=== PATIENT | male | born 1955 | race Caucasian/White ===

== ENCOUNTER 2019-07-18 14:30 | Emergency (ER) | payer MEDICARE, OTHER ==
[2019-07-18] MEDS ORDERED: Aspirin 81 MG Tab.Chew PO ONE (14:50)
--- NOTE | 2019-07-18 15:10 | EDM.PDOC ---
ED HPI GENERAL MEDICAL PROBLEM - General Chief Complaint: Chest Pain Stated Complaint: chest pain Time Seen by Provider: 07/18/19 14:50 Source of Information: Reports: Patient History Limitations: Reports: No Limitations - History of Present Illness INITIAL COMMENTS - FREE TEXT/NARRATIVE: State that he ate at noon and then laid down for a nap about 1230 and when he woke up about 1445 with some tingling in his left arm to about the elbow. [place] slightly SOB. No nausea or vomiting. Denied any chest pain "but maybe a little pressure" Denies having any pain at this time. "I might have made myself nervous with the pain in my arm". No edema noted. Onset: Today Onset Time: 13:45 Duration: Improving Location: Reports: Chest Associated Symptoms: Denies: Cough, cough w sputum, Fever/Chills, Headaches, Nausea/Vomiting Right Chest Pain Score (Numeric/FACES): 2 - Related Data Allergies Allergy/AdvReac Type Severity Reaction Status Date / Time bee venom protein (honey bee) Allergy Swelling Verified 07/18/19 15:04 Home Meds: Home Meds Fish Oil/DHA/EPA [Fish Oil 1,200 MG] 1 each PO DAILY 07/18/19 [History] Lisinopril/Hydrochlorothiazide [Lisinopril-Hctz 10-12.5 mg Tab] 1 tab PO DAILY 07/18/19 [History] Multivitamin [Multi-Vitamin Daily] 1 each PO DAILY 07/18/19 [History] atorvaSTATin Calcium [Atorvastatin Calcium] 10 mg PO DAILY 07/18/19 [History] Past Medical History Cardiovascular History: Reports: High Cholesterol, Hypertension Social & Family History - Family History Cardiac: Reports: CAD - Tobacco Use Smoking Status *Q: Current Every Day Smoker - Living Situation & Occupation Living situation: Reports: , with Spouse ED ROS GENERAL - Review of Systems Review Of Systems: See Below Constitutional: Denies: Fever, Chills HEENT: Reports: No Symptoms Respiratory: Denies: Shortness of Breath, Cough Cardiovascular: Reports: Chest Pain, Other (pain down the left arm) GI/Abdominal: Reports: No Symptoms : Reports: No Symptoms Musculoskeletal: Reports: No Symptoms Skin: Reports: No Symptoms Neurological: Reports: Tingling ED EXAM, GENERAL - Physical Exam Exam: See Below Exam Limited By: No Limitations General Appearance: Alert, WD/WN, No Apparent Distress Ears: Normal External Exam, Normal Canal, Normal TMs Nose: Normal Inspection Throat/Mouth: Normal Inspection, Normal Oropharynx, Normal Voice, No Airway Compromise Head: Atraumatic, Normocephalic Neck: Normal Inspection, Supple, Non-Tender, Full Range of Motion Respiratory/Chest: No Respiratory Distress, Lungs Clear, Normal Breath Sounds Cardiovascular: Normal Peripheral Pulses, Regular Rate, Rhythm, No Edema GI/Abdominal: Normal Bowel Sounds, Soft, Non-Tender Extremities: Normal Inspection, No Pedal Edema Neurological: Alert, Oriented Skin Exam: Warm, Dry, Intact Course - Vital Signs Last Recorded V/S: Last Vital Signs Temp 97.7 F 07/18/19 14:47 Pulse 82 07/18/19 14:47 Resp 20 07/18/19 14:47 BP 192/98 H 07/18/19 14:47 Pulse Ox 97 07/18/19 14:47 - Orders/Labs/Meds Orders: Active Orders 24 hr Category Date Time Status Chest 2V [CR] Routine Exams 07/18/19 Ordered CBC WITH AUTO DIFF [HEME] Stat Lab 07/18/19 14:55 Received COMPREHENSIVE METABOLIC PN,CMP [CHEM] Stat Lab 07/18/19 14:55 Received CREATINE KINASE,CK [CHEM] Stat Lab 07/18/19 14:55 Received INR,PT,PROTHROMBIN TIME [COAG] Stat Lab 07/18/19 14:55 Received LACTATE DEHYDROGENASE,LDH [CHEM] Stat Lab 07/18/19 14:55 Received LIPASE [CHEM] Stat Lab 07/18/19 14:55 Received PTT,PARTIAL THROMBOPLSTIN TIME [COAG] Stat Lab 07/18/19 14:55 Received TROPONIN I [CHEM] Stat Lab 07/18/19 14:55 Received - Re-Assessments/Exams Free Text/Narrative Re-Assessment/Exam: 07/18/19 15:33 Discussed normal lab results with the pt, normal EKG at this time. Pt voices understanding of above. Departure - Departure Time of Disposition: 15:34 Disposition: Home, Self-Care 01 Condition: Good Clinical Impression: Atypical chest pain, Hypertension Instructions: Nonspecific Chest Pain, Adult, [id number] Additional Instructions: Follow up with Matthieu Garza in the clinic as scheduled. If any chest pain returns or tingling down the arm, then needs to return to the ER Sepsis Event Note - Evaluation Sepsis Screening Result: No Definite Risk - Focused Exam Vital Signs: Vital Signs Temp Pulse Resp BP Pulse Ox 07/18/19 14:47 97.7 F 82 20 192/98 H 97 Date Exam was Performed: 07/18/19 Time Exam was Performed: 15:04 - Problem List & Annotations (1) Atypical chest pain SNOMED Code(s): 163488961 Code(s): R07.89 - OTHER CHEST PAIN Status: Acute Priority: High - Problem List Review Problem List Initiated/Reviewed/Updated: Yes
[2019-07-18 15:21] LABS: CHLORIDE,CL 98 mEq/L (98-106); SODIUM,NA 136 mEq/L (136-145)
[2019-07-18 15:26] LABS: PTT,PARTIAL THROMBOPLSTIN TIME 23.8 SEC (23.2-32.3)
== END 2019-07-18 15:55 | disposition home or self-care (01) ==
LOC: CC.ED 14:30
DX: R07.89 Other chest pain (principal); I10 Essential (primary) hypertension; E78.00 Pure hypercholesterolemia, unspecified; F17.200 Nicotine dependence, unspecified, uncomplicated; Z79.899 Other long term (current) drug therapy; Z91.030 Bee allergy status
CPT/HCPCS: 36415; 71046; 80053; 82550; 83615; 83690; 84484; 85025; 85610; 85730; 93005; 93010; 99284; 99285-25; A9270-GY

== ENCOUNTER 2019-11-08 06:54 | Emergency (ER) | payer MEDICARE, OTHER ==
--- NOTE | 2019-11-08 07:56 | EDM.PDOC ---
ED HPI GENERAL MEDICAL PROBLEM - General Chief Complaint: Cardiovascular Problem Stated Complaint: low BP Time Seen by Provider: 11/08/19 07:30 Source of Information: Reports: Patient History Limitations: Reports: No Limitations - History of Present Illness INITIAL COMMENTS - FREE TEXT/NARRATIVE: Patient presents to ER with complaints of chest discomfort, dizziness. States he awoke at 0400 feeling lightheaded, dizzy with mild chest discomfort. States hurt to take a deep breath. No radiation of the discomfort. No shortness of breath. No headache or fever. Has no symptoms currently. Did check his blood pressure at home and it was low at 88/40 which is uncommon for him. He denies any recent head trauma, no double or blurred vision. Has had several cups of coffee this am as he "felt would help with my blood pressure". Does normally take Lisinopril/HCTZ, has not had this am. History of smoking so admits has chronic cough related to that. No nausea or vomiting. Has been dieting as of late, was very good about water intake but has not done well as of late and feels could be "behind on his fluids". Onset: Today, Sudden Duration: Hour(s):, Improving Location: Reports: Head, Chest Severity: Mild Improves with: Reports: Rest Associated Symptoms: Reports: Chest Pain, Cough. Denies: Confusion, Diaphoresis, Fever/Chills, Loss of Appetite, Nausea/Vomiting, Shortness of Breath Middle Chest Pain Score (Numeric/FACES): 4 - Related Data Allergies Allergy/AdvReac Type Severity Reaction Status Date / Time bee venom protein (honey bee) Allergy Swelling Verified 11/08/19 07:32 Home Meds: Home Meds Fish Oil/DHA/EPA [Fish Oil 1,200 MG] 1 each PO DAILY 07/18/19 [History] Lisinopril/Hydrochlorothiazide [Lisinopril-Hctz 10-12.5 mg Tab] 1 tab PO DAILY 07/18/19 [History] Multivitamin [Multi-Vitamin Daily] 1 each PO DAILY 07/18/19 [History] atorvaSTATin Calcium [Atorvastatin Calcium] 10 mg PO DAILY 07/18/19 [History] Levofloxacin [Levaquin] 500 mg PO DAILY #10 tablet 11/08/19 [Rx] Past Medical History HEENT History: Reports: Hard of Hearing, Impaired Vision Cardiovascular History: Reports: High Cholesterol, Hypertension Gastrointestinal History: Reports: GERD Neurological History: Reports: Other (See Below) Other Neuro History: cluster headaches Endocrine/Metabolic History: Reports: Obesity/BMI 30+ Social & Family History - Family History Family Medical History: Noncontributory Cardiac: Reports: CAD - Tobacco Use Smoking Status *Q: Current Every Day Smoker Years of Tobacco use: 40 Packs/Tins Daily: 2 - Caffeine Use Caffeine Use: Reports: Coffee - Recreational Drug Use Recreational Drug Use: No - Living Situation & Occupation Living situation: Reports: , with Spouse ED ROS GENERAL - Review of Systems Review Of Systems: See Below Constitutional: Reports: Malaise. Denies: Fever, Chills, Weakness, Fatigue HEENT: Reports: Vertigo. Denies: Ear Pain, Rhinitis, Sinus Problem, Vision Change Respiratory: Reports: Cough. Denies: Shortness of Breath Cardiovascular: Reports: Chest Pain, Lightheadedness. Denies: Edema Endocrine: Denies: Fatigue GI/Abdominal: Denies: Abdominal Pain, Constipation, Diarrhea, Nausea, Vomiting : Reports: No Symptoms Musculoskeletal: Reports: No Symptoms Skin: Reports: No Symptoms Neurological: Reports: Dizziness ED EXAM, GENERAL - Physical Exam Exam: See Below Exam Limited By: No Limitations General Appearance: Alert, WD/WN, No Apparent Distress Ears: Normal External Exam, Normal TMs Nose: Normal Inspection, Normal Mucosa, No Blood Throat/Mouth: Normal Inspection, Normal Oropharynx Head: Normocephalic Neck: Normal Inspection, Supple, Non-Tender Respiratory/Chest: No Respiratory Distress, Lungs Clear, Normal Breath Sounds Cardiovascular: Regular Rate, Rhythm GI/Abdominal: Normal Bowel Sounds, Soft, Non-Tender Extremities: Normal Inspection, No Pedal Edema Neurological: Alert, Oriented Skin Exam: Warm, Dry Course - Vital Signs Last Recorded V/S: Last Vital Signs Temp 98.3 F 11/08/19 10:20 Pulse 73 11/08/19 10:20 Resp 18 11/08/19 10:20 BP 136/67 11/08/19 10:20 Pulse Ox 98 11/08/19 10:20 Orthostatic Blood Pressure [ 106/69 Standing] Orthostatic Blood Pressure [ 125/64 Sitting] Orthostatic Blood Pressure [ 115/68 Supine] - Orders/Labs/Meds Orders: Active Orders 24 hr Category Date Time Status Ang Chest [CT] Stat Exams 11/08/19 09:17 Taken Chest 2V [CR] Stat Exams 11/08/19 07:03 Taken Sodium Chloride 0.9% [Normal Saline] 1,000 ml Med 11/08/19 08:15 Active IV ASDIRECTED Medication Orders Sodium Chloride (Normal Saline) 1,000 mls @ 250 mls/hr IV ASDIRECTED CURRY Last Admin: 11/08/19 08:12 Dose: 250 mls/hr Documented by: MUNIRA Labs: Laboratory Tests 11/08/19 11/08/19 11/08/19 Range/Units 07:03 07:03 07:03 WBC 19.2 H (5.0-10.0) 10^3/uL RBC 3.79 L (4.50-6.00) 10^6/uL Hgb 13.1 L (14.0-18.0) g/dL Hct 39.5 L (40.0-54.0) % MCV 104.2 H (82.0-94.0) fL MCH 34.6 H (27.0-32.0) pg MCHC 33.2 (33.0-38.0) g/dL RDW Coeff of Luz 12.6 (11.0-15.0) % Plt Count 234 (150-400) 10^3/uL Neut % (Auto) 92.5 H (35-85) % Lymph % (Auto) 5.0 L (10-55) % [place] % (Auto) 2.4 (0-16) % Eos % (Auto) 0.1 (0-5) % Baso % (Auto) 0 (0-3) % Neut # (Auto) 17.76 H (1.80-7.00) 10^3/uL Lymph # (Auto) 0.97 L (1.00-4.80) 10^3/uL [place] # (Auto) 0.47 (0.00-0.80) 10^3/uL Eos # (Auto) 0.02 (0.00-0.45) 10^3/uL Baso # (Auto) 0.00 10^3/uL PT 10.2 (9.7-12.3) SEC INR 1.01 (0.92-1.18) APTT 22.2 L (23.2-32.3) SEC D-Dimer, Quantitative 0.76 H (0.00-0.50) Sodium 141 (136-145) mEq/L Potassium 3.9 (3.5-5.0) mEq/L Chloride 106 (98-106) mEq/L Carbon Dioxide 24 (21-32) mmol/L BUN 9 (7-18) mg/dL Creatinine 0.9 (0.7-1.3) mg/dL Est Cr Clr Drug Dosing 92.48 mL/min Estimated GFR (MDRD) > 60 (>=60) mL/min Glucose 177 H D (75-99) mg/dL Hemoglobin A1c (4.8-5.6) % Calcium 8.3 L (8.4-10.1) mg/dL Lactate Dehydrogenase 149 (100-190) U/L Creatine Kinase 73 (35-232) U/L Troponin I < 0.017 (0.00-0.06) ng/mL C-Reactive Protein (0.2-0.8) mg/dL Urine Color (YELLOW) Urine Appearance (CLEAR) Urine pH (4.5-8.0) Ur Specific [place] (1.003-1.020) Urine Protein (NEGATIVE) mg/dL Urine Glucose (UA) (NEGATIVE) mg/dL Urine Ketones (NEGATIVE) mg/dL Urine Occult Blood (NEGATIVE) Urine Nitrite (NEGATIVE) Urine Bilirubin (NEGATIVE) Urine Urobilinogen (0.2-1.0) EU/dL Ur Leukocyte Esterase (NEGATIVE) COVID-19 (KAYDEN) (NEGATIVE) 11/08/19 11/08/19 11/08/19 Range/Units 08:00 08:03 08:03 WBC (5.0-10.0) 10^3/uL RBC (4.50-6.00) 10^6/uL Hgb (14.0-18.0) g/dL Hct (40.0-54.0) % MCV (82.0-94.0) fL MCH (27.0-32.0) pg MCHC (33.0-38.0) g/dL RDW Coeff of Luz (11.0-15.0) % Plt Count (150-400) 10^3/uL Neut % (Auto) (35-85) % Lymph % (Auto) (10-55) % [place] % (Auto) (0-16) % Eos % (Auto) (0-5) % Baso % (Auto) (0-3) % Neut # (Auto) (1.80-7.00) 10^3/uL Lymph # (Auto) (1.00-4.80) 10^3/uL [place] # (Auto) (0.00-0.80) 10^3/uL Eos # (Auto) (0.00-0.45) 10^3/uL Baso # (Auto) 10^3/uL PT (9.7-12.3) SEC INR (0.92-1.18) APTT (23.2-32.3) SEC D-Dimer, Quantitative (0.00-0.50) Sodium (136-145) mEq/L Potassium (3.5-5.0) mEq/L Chloride (98-106) mEq/L Carbon Dioxide (21-32) mmol/L BUN (7-18) mg/dL Creatinine (0.7-1.3) mg/dL Est Cr Clr Drug Dosing mL/min Estimated GFR (MDRD) (>=60) mL/min Glucose (75-99) mg/dL Hemoglobin A1c 5.6 (4.8-5.6) % Calcium (8.4-10.1) mg/dL Lactate Dehydrogenase (100-190) U/L Creatine Kinase (35-232) U/L Troponin I (0.00-0.06) ng/mL C-Reactive Protein 0.4 (0.2-0.8) mg/dL Urine Color (YELLOW) Urine Appearance (CLEAR) Urine pH (4.5-8.0) Ur Specific [place] (1.003-1.020) Urine Protein (NEGATIVE) mg/dL Urine Glucose (UA) (NEGATIVE) mg/dL Urine Ketones (NEGATIVE) mg/dL Urine Occult Blood (NEGATIVE) Urine Nitrite (NEGATIVE) Urine Bilirubin (NEGATIVE) Urine Urobilinogen (0.2-1.0) EU/dL Ur Leukocyte Esterase (NEGATIVE) COVID-19 (KAYDEN) Negative (NEGATIVE) 11/08/19 11/08/19 Range/Units 09:14 11:00 WBC (5.0-10.0) 10^3/uL RBC (4.50-6.00) 10^6/uL Hgb (14.0-18.0) g/dL Hct (40.0-54.0) % MCV (82.0-94.0) fL MCH (27.0-32.0) pg MCHC (33.0-38.0) g/dL RDW Coeff of Luz (11.0-15.0) % Plt Count (150-400) 10^3/uL Neut % (Auto) (35-85) % Lymph % (Auto) (10-55) % [place] % (Auto) (0-16) % Eos % (Auto) (0-5) % Baso % (Auto) (0-3) % Neut # (Auto) (1.80-7.00) 10^3/uL Lymph # (Auto) (1.00-4.80) 10^3/uL [place] # (Auto) (0.00-0.80) 10^3/uL Eos # (Auto) (0.00-0.45) 10^3/uL Baso # (Auto) 10^3/uL PT (9.7-12.3) SEC INR (0.92-1.18) APTT (23.2-32.3) SEC D-Dimer, Quantitative (0.00-0.50) Sodium (136-145) mEq/L Potassium (3.5-5.0) mEq/L Chloride (98-106) mEq/L Carbon Dioxide (21-32) mmol/L BUN (7-18) mg/dL Creatinine (0.7-1.3) mg/dL Est Cr Clr Drug Dosing mL/min Estimated GFR (MDRD) (>=60) mL/min Glucose (75-99) mg/dL Hemoglobin A1c (4.8-5.6) % Calcium (8.4-10.1) mg/dL Lactate Dehydrogenase (100-190) U/L Creatine Kinase (35-232) U/L Troponin I < 0.017 (0.00-0.06) ng/mL C-Reactive Protein (0.2-0.8) mg/dL Urine Color Yellow (YELLOW) Urine Appearance Clear (CLEAR) Urine pH 5.5 (4.5-8.0) Ur Specific [place] 1.020 (1.003-1.020) Urine Protein Negative (NEGATIVE) mg/dL Urine Glucose (UA) Negative (NEGATIVE) mg/dL Urine Ketones Negative (NEGATIVE) mg/dL Urine Occult Blood Negative (NEGATIVE) Urine Nitrite Negative (NEGATIVE) Urine Bilirubin Negative (NEGATIVE) Urine Urobilinogen 0.2 (0.2-1.0) EU/dL Ur Leukocyte Esterase Negative (NEGATIVE) COVID-19 (KAYDEN) (NEGATIVE) Meds: Medications Generic Name Dose Route Start Last Admin Trade Name Freq PRN Reason Stop Dose Admin Sodium Chloride 1,000 mls @ 250 mls/hr 11/08/19 08:15 11/08/19 08:12 Normal Saline IV 250 mls/hr ASDIRECTED CURRY Administration Discontinued Medications Generic Name Dose Route Start Last Admin Trade Name Freq PRN Reason Stop Dose Admin Iopamidol 100 ml 11/08/19 09:23 11/08/19 10:04 Isovue-370 (76%) IVPUSH 11/08/19 09:24 100 ml ONETIME ONE Administration - Re-Assessments/Exams Free Text/Narrative Re-Assessment/Exam: 11/08/19 0930 CRP is negative. WBC is high at 19.2. D-dimer is mildly elevated, will proceed with CTA of chest. Glucose was elevated, did do A1C and is normal. IV fluids infusing. Standing blood pressure did drop some with checking orthostatic blood pressures. 11/08/19 11:39 Patient is doing well. Blood pressure is improved. Troponin remains negative. CT scan does show atypical infection. COVID testing was negative. Discussed this with patient, will retest for this on Tuesday. CT scan also shows hilar lymph notes, could be related to infection. Mild thickening noted which can be correlated with pulmonary edema. All of this discussed with patient and . Will need follow up CT scan of his chest in 3 months. If any of his symptoms progress, will need to return back to the ER. Departure - Departure Time of Disposition: 11:46 Disposition: Home, Self-Care 01 Condition: Good Clinical Impression: RLL pneumonia Qualifiers: Pneumonia type: due to other aerobic Gram-negative bacteria Qualified Code(s): J15.6 - Pneumonia due to other Gram-negative bacteria Instructions: Shortness of Breath, Adult, [id number], Community-Acquired Pneumonia, Adult, [id number] Forms: ED Department Discharge Additional Instructions: 1. Rest 2. Push fluids 3. Levaquin 500 mg daily for 10 days 4. Return on Tuesday between 9-12 for covid retesting. Please call [phone] when you arrive to the parking lot for the testing. 5. Return to ER if breathing changes, more short of breath or fevers. Sepsis Event Note (ED) - Evaluation Sepsis Screening Result: No Definite Risk - Focused Exam Vital Signs: Vital Signs Temp Pulse Resp BP Pulse Ox 11/08/19 10:20 98.3 F 73 18 136/67 98 11/08/19 07:49 67 18 120/71 11/08/19 06:54 98.1 F 65 18 119/64 98 - My Orders Last 24 Hours: My Active Orders 11/08/19 07:03 Chest 2V [CR] Stat 11/08/19 08:15 Sodium Chloride 0.9% [Normal Saline] 1,000 ml IV ASDIRECTED 11/08/19 09:17 Ang Chest [CT] Stat - Assessment/Plan Last 24 Hours: My Active Orders 11/08/19 07:03 Chest 2V [CR] Stat 11/08/19 08:15 Sodium Chloride 0.9% [Normal Saline] 1,000 ml IV ASDIRECTED 11/08/19 09:17 Ang Chest [CT] Stat
[2019-11-08 08:00] LABS: CHLORIDE,CL 106 mEq/L (98-106); SODIUM,NA 141 mEq/L (136-145)
[2019-11-08 08:11] LABS: PTT,PARTIAL THROMBOPLSTIN TIME 22.2 SEC (23.2-32.3)
[2019-11-08] MEDS ORDERED: Sodium Chloride 0.9% 1,000 ML IV SCH (08:15)
[2019-11-08 08:20] LABS: HEMOGLOBIN A1C 5.6 % (4.8-5.6)
[2019-11-08] MEDS ORDERED: Iopamidol 755 Mg/ML 100 ML Bottle IVPUSH ONE (09:23)
== END 2019-11-08 11:55 | disposition home or self-care (01) ==
LOC: CC.ED 06:54
DX: J15.6 Pneumonia due to other Gram-negative bacteria (principal); Z20.828 Contact with and (suspected) exposure to other viral communicable diseases; Z91.030 Bee allergy status; R42 Dizziness and giddiness; I10 Essential (primary) hypertension; E78.00 Pure hypercholesterolemia, unspecified; E66.9 Obesity, unspecified; F17.210 Nicotine dependence, cigarettes, uncomplicated; Z79.899 Other long term (current) drug therapy; Z68.27 Body mass index [BMI] 27.0-27.9, adult
CPT/HCPCS: 36415; 71046; 71275; 80048; 81003; 82550; 83036; 83615; 84484; 85025; 85379; 85610; 85730; 86140; 93005; 93010; 96360; 96361; 99284; 99285; J7030; Q9967; U0002